=== PATIENT | male | born 1980 | race Caucasian/White ===

== ENCOUNTER 2023-10-17 07:11 | Emergency (ER) | payer OTHER ==
[~2023-10-17] VITALS: Ht 180.3 cm; Wt 105.1 kg
[2023-10-17 07:50] VITALS: BP 150/111; PULSE 88; RESP 16; TEMP 98.5; O2SAT 96
[2023-10-17] MEDS ORDERED: PRED20TA2 PO (08:40)
[2023-10-17] MEDS ORDERED: IBUP-1456 PO (08:40)
== END 2023-10-17 08:49 | disposition home or self-care (01) ==
LOC: ER 07:11
DX: S93.402A Sprain of unspecified ligament of left ankle, initial encounter (principal); M51.36 Other intervertebral disc degeneration, lumbar region; M54.16 Radiculopathy, lumbar region; Z79.1 Long term (current) use of non-steroidal anti-inflammatories (NSAID); Z79.899 Other long term (current) drug therapy; X50.1XXA Overexertion from prolonged static or awkward postures, initial encounter; Y93.89 Activity, other specified; Y92.89 Other specified places as the place of occurrence of the external cause; Y99.0 Civilian activity done for income or pay
CPT/HCPCS: 72100; 73610